=== PATIENT | female | born 1990 | race Caucasian/White ===

== ENCOUNTER 2016-06-29 15:57 | Emergency (ER) | payer OTHER ==
[~2016-06-29] VITALS: Ht 160 cm; Wt 59.0 kg
[~2016-06-29 15:57] MED LIST: ALBUTEROL0.09 MG/A2 IH; AMOXICILLIN500 M2 PO; AMOXIL500 MG PO; ANAPROX DS550 MG PO; ATIVAN1 MG PO; AUGMENTIN 875 M1 TA1 PO; AUGMENTIN 875875 MG PO; CHERATUSSIN AC120 ML PO; CIPRO500 MG PO; COLACE100 MG PO; CYCLOBENZAPRINE5 M3 PO; DIFLUCAN150 MG PO; DOXYCYCLINE HY100 M3 PO; FLAGYL500 MG PO; FLUCONAZOLE100 MG PO; Flagyl500 M1 PO; IRON325 M1 PO; LEVAQUIN250 MG PO; LEVOFLOXACIN500 MG PO; MOTRIN600 MG PO; MOTRIN800 MG PO; Motrin,Rufen800 MG PO; NASONEX0.05 MG/AC NS; NKHM; PERCOCET 325 MG1 TA2 PO; PERCOCET 325 MG1 TA7 PO; PREDNISONE10 MG PO; PYRIDIUM200 MG PO; TOBRAMYCIN 5 ML5 M1 OPH; ULTRAM50 MG PO; VIBRAMYCIN100 MG PO; ZITHROMAX Z PA250 MG PO; ZITHROMAX250 MG PO; ZOFRAN4 MG; [UNRECOGNIZED DRUG - OTHER] PO
[2016-06-29] MEDS ORDERED: CEPHALEXIN500 M1 PO (17:27)
== END 2016-06-29 17:30 | disposition home or self-care (01) ==
LOC: ED 15:57
DX: L03.116 Cellulitis of left lower limb (principal); F17.200 Nicotine dependence, unspecified, uncomplicated; Z91.040 Latex allergy status; Z88.2 Allergy status to sulfonamides; Z88.5 Allergy status to narcotic agent

== ENCOUNTER 2016-08-04 19:45 | Emergency (ER) | payer OTHER ==
[~2016-08-04] VITALS: Ht 160 cm; Wt 56.7 kg
[~2016-08-04 19:45] MED LIST changes: +CEPHALEXIN500 M1 PO
[2016-08-04 20:23] LABS: BILIRUBIN NEGATIVE (NEGATIVE); BLOOD 3+ (NEGATIVE); CLARITY SL CLOUDY (CLEAR); COLOR YELLOW (YELLOW); GLUCOSE NEGATIVE (NEGATIVE); KETONE TRACE (NEGATIVE); LEUKO ESTERASE 1+ (NEGATIVE); NITRITE NEGATIVE (NEGATIVE); PH 6.5 (5.0-9.0); PROTEIN NEGATIVE (NEGATIVE); SPECIFIC GRAVITY 1.015 (1.005-1.030); UROBILINOGEN 0.2 E.U./dl (0.2-1.0)
[2016-08-04 20:29] LABS: BACTERIA 1+; RBC 16-20 rbc/hpf (0-2); URINE REFLEX COMMENT YES (NO); WBC 31-40 wbc/hpf (0-5)
[2016-08-04] MEDS ORDERED: DIFLUCAN150 MG PO (20:35)
[2016-08-04] MEDS ORDERED: CIPRO500 MG PO (20:35)
== END 2016-08-04 20:49 | disposition home or self-care (01) ==
LOC: ED 19:45
PROVIDERS: Physician Assistant
DX: N30.01 Acute cystitis with hematuria (principal); F17.200 Nicotine dependence, unspecified, uncomplicated; Z91.040 Latex allergy status; Z88.2 Allergy status to sulfonamides; Z88.6 Allergy status to analgesic agent

== ENCOUNTER 2016-11-26 17:54 | Emergency (ER) | payer OTHER ==
[~2016-11-26] VITALS: Wt 59.0 kg
[2016-11-26 18:27] LABS: BILIRUBIN NEGATIVE (NEGATIVE); BLOOD 3+ (NEGATIVE); CLARITY SL CLOUDY (CLEAR); COLOR YELLOW (YELLOW); GLUCOSE NEGATIVE (NEGATIVE); KETONE NEGATIVE (NEGATIVE); LEUKO ESTERASE NEGATIVE (NEGATIVE); NITRITE NEGATIVE (NEGATIVE); PH 6.5 (5.0-9.0); UROBILINOGEN 0.2 E.U./dl (0.2-1.0)
[2016-11-26 18:36] LABS: BACTERIA 4+; MUCOUS TRACE; RBC 16-20 rbc/hpf (0-2); WBC 0-2 wbc/hpf (0-5)
[2016-11-27 22:05] LABS: GONOCOCCUS BY NAA Negative (Negative)
== END 2016-11-26 19:23 | disposition home or self-care (01) ==
LOC: ED 17:54
PROVIDERS: Student in an Organized Health Care Education/Training Program
DX: N89.8 Other specified noninflammatory disorders of vagina (principal); F17.200 Nicotine dependence, unspecified, uncomplicated; Z91.040 Latex allergy status; Z88.2 Allergy status to sulfonamides; Z88.5 Allergy status to narcotic agent

== ENCOUNTER 2017-05-26 16:12 | Emergency (ER) | payer OTHER ==
[~2017-05-26] VITALS: Wt 62.6 kg
[2017-05-26 16:52] LABS: BILIRUBIN NEGATIVE (NEGATIVE); BLOOD 1+ (NEGATIVE); CLARITY SL CLOUDY (CLEAR); COLOR YELLOW (YELLOW); GLUCOSE NEGATIVE (NEGATIVE); KETONE 1+ (NEGATIVE); LEUKO ESTERASE NEGATIVE (NEGATIVE); NITRITE NEGATIVE (NEGATIVE); UROBILINOGEN 0.2 E.U./dl (0.2-1.0)
[2017-05-26 17:01] LABS: BACTERIA 2+; EPITHELIAL CELLS TNTC; MUCOUS TRACE
[2017-05-26] MEDS ORDERED: DICLEGIS DR 101 EACH PO (17:07)
[2017-05-26] MEDS ORDERED: PRENATAL VITAM1 EAC4 PO (17:07)
== END 2017-05-26 17:22 | disposition home or self-care (01) ==
LOC: ED 16:12
PROVIDERS: Nurse Practitioner Family
DX: Z32.01 Encounter for pregnancy test, result positive (principal); R30.0 Dysuria; F17.200 Nicotine dependence, unspecified, uncomplicated; Z91.040 Latex allergy status; Z88.2 Allergy status to sulfonamides; Z88.5 Allergy status to narcotic agent

== ENCOUNTER → 2017-10-29 | Outpatient (CLI) | payer OTHER ==
[~2017-10-29] MED LIST changes: +ANUSOL-HC25 MG R; +DICLEGIS DR 101 EACH PO; +PRENATAL VITAM1 EAC4 PO
== END | disposition home or self-care (01) ==
LOC: US 14:00
DX: O20.0 Threatened abortion (principal)

== ENCOUNTER 2017-12-08 21:46 | Emergency (ER) | payer OTHER ==
[~2017-12-08] VITALS: Ht 160 cm; Wt 52.2 kg
[2017-12-08 22:27] LABS: BASO % 0.3 % (0.0-1.0); EOS # 0.2 10*3/uL (0.0-0.4); EOS % 1.5 % (1.0-4.0); HEMATOCRIT 30.6 % (37.0-47.0); HEMOGLOBIN 10.5 g/dl (12.0-16.0); LYMPH # 3.6 10*3/uL (1.3-4.4); LYMPH % 30.5 % (27.0-41.0); MEAN CELL VOLUME 91.6 fl (81.0-99.0); MEAN CORPUSCULAR HGB 31.4 pg (27.0-31.0); MEAN CORPUSCULAR HGB CONC 34.3 g/dl (33.0-37.0); MEAN PLATELET VOLUME 10.5 fl (9.6-12.3); MONO % 8.2 % (3.0-9.0); NEUT # 6.9 10*3/uL (2.3-7.9); NEUT % 59.2 % (47.0-73.0); PLATELET COUNT AUTOMATED 313 10*3/uL (130-400); RED BLOOD COUNT 3.34 10*6/uL (4.10-5.10); WHITE BLOOD COUNT 11.7 10*3/uL (4.8-10.8)
[2017-12-08 22:33] LABS: BILIRUBIN NEGATIVE (NEGATIVE); BLOOD 2+ (NEGATIVE); CLARITY SL CLOUDY (CLEAR); COLOR YELLOW (YELLOW); GLUCOSE NEGATIVE (NEGATIVE); KETONE NEGATIVE (NEGATIVE); LEUKO ESTERASE TRACE (NEGATIVE); NITRITE NEGATIVE (NEGATIVE); SPECIFIC GRAVITY 1.015 (1.005-1.030); UROBILINOGEN 0.2 E.U./dl (0.2-1.0)
[2017-12-08 22:36] LABS: INTERNATIONAL NORM RATIO 0.9 (2.0-3.5)
[2017-12-08 22:41] LABS: ALBUMIN 3.2 gm/dl (3.1-4.5); ALKALINE PHOSPHATASE 58 U/L (45-117); BUN 12 mg/dl (7-24); CHLORIDE 105 mmol/L (98-107); CREATININE 0.57 mg/dL (0.55-1.02); LIPASE 166 U/L (73-393); POTASSIUM 3.6 mmol/L (3.5-5.1); SGOT/AST 13 IU/L (3-35); SGPT/ALT 21 U/L (12-78); SODIUM 139 mmol/L (136-145)
[2017-12-08 22:51] LABS: URINE AMPHETAMINES < 1000 (1000ng/ml); URINE BARBITURATES < 200 (200ng/ml); URINE BENZODIAZEPINES < 200 (200ng/ml); URINE CANNABINOIDS (THC) < 50 (50ng/ml); URINE COCAINE < 300 (300ng/ml); URINE METHADONE < 300 (300ng/ml); URINE OPIATES < 300 (300ng/ml)
[2017-12-08 22:52] LABS: BACTERIA 3+; EPITHELIAL CELLS TNTC; YEAST TRACE
[2017-12-08 22:53] LABS: URINE PHENCYCLIDINE < 25 (25ng/ml)
== END 2017-12-08 23:40 | disposition home or self-care (01) ==
LOC: ED 21:46
PROVIDERS: Physician Assistant
DX: O26.891 Other specified pregnancy related conditions, first trimester (principal); R11.10 Vomiting, unspecified; O99.331 Smoking (tobacco) complicating pregnancy, first trimester; Z3A.12 12 weeks gestation of pregnancy; Z79.899 Other long term (current) drug therapy; Z91.040 Latex allergy status; Z88.2 Allergy status to sulfonamides; Z88.6 Allergy status to analgesic agent

== ENCOUNTER 2018-02-07 20:38 | Emergency (ER) | payer OTHER ==
[~2018-02-07] VITALS: Ht 160 cm; Wt 57.6 kg
[2018-02-07 21:02] LABS: BILIRUBIN NEGATIVE (NEGATIVE); BLOOD TRACE-INTACT (NEGATIVE); CLARITY CLOUDY (CLEAR); COLOR YELLOW (YELLOW); GLUCOSE NEGATIVE (NEGATIVE); KETONE NEGATIVE (NEGATIVE); LEUKO ESTERASE 1+ (NEGATIVE); NITRITE NEGATIVE (NEGATIVE); PH 6.5 (5.0-9.0); UROBILINOGEN 0.2 E.U./dl (0.2-1.0)
[2018-02-07 21:07] LABS: BACTERIA 2+; EPITHELIAL CELLS TNTC; RBC 0-2 rbc/hpf (0-2)
[2018-02-07 21:11] LABS: BASO % 0.4 % (0.0-1.0); EOS # 0.2 10*3/uL (0.0-0.4); EOS % 1.3 % (1.0-4.0); HEMATOCRIT 28.2 % (37.0-47.0); HEMOGLOBIN 9.4 g/dl (12.0-16.0); LYMPH # 2.6 10*3/uL (1.3-4.4); LYMPH % 23.7 % (27.0-41.0); MEAN CELL VOLUME 95.6 fl (81.0-99.0); MEAN CORPUSCULAR HGB 31.9 pg (27.0-31.0); MEAN CORPUSCULAR HGB CONC 33.3 g/dl (33.0-37.0); MEAN PLATELET VOLUME 10.5 fl (9.6-12.3); MONO # 0.7 10*3/uL (0.1-1.0); NEUT # 7.6 10*3/uL (2.3-7.9); PLATELET COUNT AUTOMATED 291 10*3/uL (130-400); RED BLOOD COUNT 2.95 10*6/uL (4.10-5.10); RED CELL DISTRI WIDTH 13.2 % (0-14.5); WHITE BLOOD COUNT 11.2 10*3/uL (4.8-10.8)
[2018-02-07 21:27] LABS: ALKALINE PHOSPHATASE 73 U/L (45-117); BUN 13 mg/dl (7-24); CHLORIDE 106 mmol/L (98-107); LIPASE 128 U/L (73-393); POTASSIUM 3.3 mmol/L (3.5-5.1); SGOT/AST 12 IU/L (3-35); SGPT/ALT 20 U/L (12-78); SODIUM 139 mmol/L (136-145); TOTAL PROTEIN 6.5 gm/dL (6.4-8.2)
== END 2018-02-07 23:38 | disposition left against medical advice (07) ==
LOC: ED 20:38
PROVIDERS: Nurse Practitioner Family
DX: O26.892 Other specified pregnancy related conditions, second trimester (principal); R10.31 Right lower quadrant pain; O99.332 Smoking (tobacco) complicating pregnancy, second trimester; Z91.040 Latex allergy status; Z88.2 Allergy status to sulfonamides; Z88.6 Allergy status to analgesic agent; Z79.899 Other long term (current) drug therapy; Z3A.21 21 weeks gestation of pregnancy

== ENCOUNTER 2018-03-15 16:42 | Emergency (ER) | payer OTHER ==
[~2018-03-15] VITALS: Ht 160 cm; Wt 58.5 kg
[2018-03-15 17:55] LABS: BILIRUBIN NEGATIVE (NEGATIVE); BLOOD TRACE-INTACT (NEGATIVE); CLARITY SL CLOUDY (CLEAR); COLOR YELLOW (YELLOW); GLUCOSE NEGATIVE (NEGATIVE); KETONE 1+ (NEGATIVE); LEUKO ESTERASE NEGATIVE (NEGATIVE); NITRITE NEGATIVE (NEGATIVE); UROBILINOGEN 0.2 E.U./dl (0.2-1.0)
[2018-03-15 18:09] LABS: BACTERIA 3+; EPITHELIAL CELLS 16-20
== END 2018-03-15 18:17 | disposition short-term general hospital (02) ==
LOC: ED 16:42
PROVIDERS: Emergency Medicine
DX: O9A.212 Injury, poisoning and certain other consequences of external causes complicating pregnancy, second trimester (principal); S39.91XA Unspecified injury of abdomen, initial encounter; O99.332 Smoking (tobacco) complicating pregnancy, second trimester; Z91.040 Latex allergy status; Z88.2 Allergy status to sulfonamides; Z88.6 Allergy status to analgesic agent; Z79.899 Other long term (current) drug therapy; Z3A.26 26 weeks gestation of pregnancy; W50.1XXA Accidental kick by another person, initial encounter; Y93.89 Activity, other specified; Y92.89 Other specified places as the place of occurrence of the external cause; Y99.8 Other external cause status

== ENCOUNTER 2018-04-19 20:58 | Emergency (ER) | payer OTHER ==
[~2018-04-19] VITALS: Ht 160 cm; Wt 59.0 kg
[2018-04-19 21:41] LABS: BILIRUBIN NEGATIVE (NEGATIVE); BLOOD NEGATIVE (NEGATIVE); CLARITY SL CLOUDY (CLEAR); COLOR YELLOW (YELLOW); GLUCOSE NEGATIVE (NEGATIVE); KETONE NEGATIVE (NEGATIVE); LEUKO ESTERASE NEGATIVE (NEGATIVE); NITRITE NEGATIVE (NEGATIVE); UROBILINOGEN 0.2 E.U./dl (0.2-1.0)
[2018-04-19 21:44] LABS: BASO % 0.1 % (0.0-1.0); EOS # 0.1 10*3/uL (0.0-0.4); EOS % 1.3 % (1.0-4.0); HEMOGLOBIN 8.9 g/dl (12.0-16.0); LYMPH # 2.6 10*3/uL (1.3-4.4); LYMPH % 24.9 % (27.0-41.0); MEAN CELL VOLUME 93.4 fl (81.0-99.0); MEAN CORPUSCULAR HGB 30.8 pg (27.0-31.0); MEAN PLATELET VOLUME 10.1 fl (9.6-12.3); MONO % 9.9 % (3.0-9.0); NEUT # 6.5 10*3/uL (2.3-7.9); NEUT % 62.9 % (47.0-73.0); PLATELET COUNT AUTOMATED 332 10*3/uL (130-400); RED BLOOD COUNT 2.89 10*6/uL (4.10-5.10); RED CELL DISTRI WIDTH 13.5 % (0-14.5); WHITE BLOOD COUNT 10.3 10*3/uL (4.8-10.8)
[2018-04-19 21:49] LABS: BACTERIA 2+; RBC 0-2 rbc/hpf (0-2)
[2018-04-19 22:03] LABS: ALBUMIN 2.6 gm/dl (3.1-4.5); ALKALINE PHOSPHATASE 123 U/L (45-117); BUN 7 mg/dl (7-24); CHLORIDE 106 mmol/L (98-107); CREATININE 0.53 mg/dL (0.55-1.02); LIPASE 149 U/L (73-393); POTASSIUM 3.3 mmol/L (3.5-5.1); SGOT/AST 15 IU/L (3-35); SGPT/ALT 16 U/L (12-78); SODIUM 138 mmol/L (136-145); TOTAL PROTEIN 6.2 gm/dL (6.4-8.2)
[2018-04-19] MEDS ORDERED: LEVOFLOXACIN500 MG PO (22:31)
[2018-04-19] MEDS ORDERED: K-TAB20 MEQ PO (23:01)
== END 2018-04-19 23:28 | disposition home or self-care (01) ==
LOC: ED 20:58
PROVIDERS: Physician Assistant
DX: O26.893 Other specified pregnancy related conditions, third trimester (principal); R10.13 Epigastric pain; R10.11 Right upper quadrant pain; Z91.040 Latex allergy status; Z88.6 Allergy status to analgesic agent; Z88.2 Allergy status to sulfonamides; Z3A.31 31 weeks gestation of pregnancy

== ENCOUNTER 2018-05-12 03:19 | Emergency (ER) | payer OTHER ==
[~2018-05-12] VITALS: Ht 160 cm; Wt 63.5 kg
[~2018-05-12 03:19] MED LIST changes: +K-TAB20 MEQ PO
[2018-05-12 03:52] LABS: BILIRUBIN NEGATIVE (NEGATIVE); BLOOD NEGATIVE (NEGATIVE); CLARITY SL CLOUDY (CLEAR); COLOR YELLOW (YELLOW); GLUCOSE NEGATIVE (NEGATIVE); KETONE NEGATIVE (NEGATIVE); LEUKO ESTERASE NEGATIVE (NEGATIVE); NITRITE NEGATIVE (NEGATIVE); PH 8.5 (5.0-9.0); UROBILINOGEN 0.2 E.U./dl (0.2-1.0)
[2018-05-12 04:04] LABS: BASO % 0.2 % (0.0-1.0); EOS # 0.1 10*3/uL (0.0-0.4); EOS % 1.1 % (1.0-4.0); HEMATOCRIT 27.2 % (37.0-47.0); HEMOGLOBIN 8.8 g/dl (12.0-16.0); LYMPH # 1.8 10*3/uL (1.3-4.4); LYMPH % 18.7 % (27.0-41.0); MEAN CELL VOLUME 93.8 fl (81.0-99.0); MEAN CORPUSCULAR HGB 30.3 pg (27.0-31.0); MEAN CORPUSCULAR HGB CONC 32.4 g/dl (33.0-37.0); MEAN PLATELET VOLUME 10.7 fl (9.6-12.3); MONO # 0.8 10*3/uL (0.1-1.0); MONO % 8.3 % (3.0-9.0); NEUT # 6.7 10*3/uL (2.3-7.9); NEUT % 70.9 % (47.0-73.0); PLATELET COUNT AUTOMATED 337 10*3/uL (130-400); RED CELL DISTRI WIDTH 13.9 % (0-14.5); WHITE BLOOD COUNT 9.5 10*3/uL (4.8-10.8)
[2018-05-12 04:13] LABS: BACTERIA 2+; EPITHELIAL CELLS 40-45
[2018-05-12 04:39] LABS: ALBUMIN 2.6 gm/dl (3.1-4.5); ALKALINE PHOSPHATASE 156 U/L (45-117); BUN 11 mg/dl (7-24); CHLORIDE 106 mmol/L (98-107); CREATININE 0.53 mg/dL (0.55-1.02); POTASSIUM 3.5 mmol/L (3.5-5.1); SGOT/AST 12 IU/L (3-35); SGPT/ALT 12 U/L (12-78); SODIUM 137 mmol/L (136-145); TOTAL PROTEIN 6.1 gm/dL (6.4-8.2)
== END 2018-05-12 07:33 | disposition home or self-care (01) ==
LOC: ED 03:19
PROVIDERS: Emergency Medicine
DX: O21.2 Late vomiting of pregnancy (principal); O26.893 Other specified pregnancy related conditions, third trimester; O99.333 Smoking (tobacco) complicating pregnancy, third trimester; R51 Headache; F17.200 Nicotine dependence, unspecified, uncomplicated; Z3A.34 34 weeks gestation of pregnancy; Z91.040 Latex allergy status; Z88.2 Allergy status to sulfonamides; Z88.6 Allergy status to analgesic agent

== ENCOUNTER 2018-05-24 07:18 | Emergency (ER) | payer OTHER ==
[~2018-05-24] VITALS: Ht 160 cm; Wt 63.0 kg
[2018-05-24 07:42] LABS: BASO % 0.2 % (0.0-1.0); EOS # 0.1 10*3/uL (0.0-0.4); EOS % 0.7 % (1.0-4.0); HEMATOCRIT 26.9 % (37.0-47.0); HEMOGLOBIN 8.7 g/dl (12.0-16.0); LYMPH # 2.7 10*3/uL (1.3-4.4); LYMPH % 20.6 % (27.0-41.0); MEAN CELL VOLUME 91.5 fl (81.0-99.0); MEAN CORPUSCULAR HGB 29.6 pg (27.0-31.0); MEAN CORPUSCULAR HGB CONC 32.3 g/dl (33.0-37.0); MEAN PLATELET VOLUME 11.3 fl (9.6-12.3); MONO % 7.4 % (3.0-9.0); NEUT # 9.1 10*3/uL (2.3-7.9); NEUT % 70.4 % (47.0-73.0); PLATELET COUNT AUTOMATED 320 10*3/uL (130-400); RED BLOOD COUNT 2.94 10*6/uL (4.10-5.10); RED CELL DISTRI WIDTH 13.8 % (0-14.5); WHITE BLOOD COUNT 12.9 10*3/uL (4.8-10.8)
[2018-05-24 07:54] LABS: ACT PARTIAL THROMBO TIME 24.2 SECONDS (20.8-31.5); INTERNATIONAL NORM RATIO 0.9 (2.0-3.5)
[2018-05-24 08:06] LABS: ALBUMIN 2.7 gm/dl (3.1-4.5); ALKALINE PHOSPHATASE 186 U/L (45-117); BUN 14 mg/dl (7-24); CHLORIDE 105 mmol/L (98-107); CREATININE 0.52 mg/dL (0.55-1.02); POTASSIUM 3.4 mmol/L (3.5-5.1); SGOT/AST 17 IU/L (3-35); SGPT/ALT 14 U/L (12-78); SODIUM 137 mmol/L (136-145); TOTAL PROTEIN 6.2 gm/dL (6.4-8.2)
[2018-05-24 08:39] LABS: BILIRUBIN NEGATIVE (NEGATIVE); BLOOD NEGATIVE (NEGATIVE); CLARITY CLOUDY (CLEAR); COLOR YELLOW (YELLOW); GLUCOSE NEGATIVE (NEGATIVE); KETONE NEGATIVE (NEGATIVE); LEUKO ESTERASE NEGATIVE (NEGATIVE); NITRITE NEGATIVE (NEGATIVE); SPECIFIC GRAVITY 1.015 (1.005-1.030); UROBILINOGEN 0.2 E.U./dl (0.2-1.0)
[2018-05-24 08:47] LABS: BACTERIA 4+; EPITHELIAL CELLS 25-30
[2018-05-24 08:54] LABS: URINE AMPHETAMINES < 1000 (1000ng/ml); URINE BARBITURATES < 200 (200ng/ml); URINE BENZODIAZEPINES < 200 (200ng/ml); URINE CANNABINOIDS (THC) < 50 (50ng/ml); URINE COCAINE < 300 (300ng/ml); URINE METHADONE < 300 (300ng/ml); URINE OPIATES < 300 (300ng/ml)
[2018-05-24 09:14] LABS: URINE PHENCYCLIDINE < 25 (25ng/ml)
== END 2018-05-24 09:29 | disposition home or self-care (01) ==
LOC: ED 07:18
PROVIDERS: Emergency Medicine
DX: O26.893 Other specified pregnancy related conditions, third trimester (principal); O21.2 Late vomiting of pregnancy; M54.6 Pain in thoracic spine; R51 Headache; R10.11 Right upper quadrant pain; Z91.040 Latex allergy status; Z88.2 Allergy status to sulfonamides; Z88.6 Allergy status to analgesic agent; Z87.891 Personal history of nicotine dependence; Z3A.36 36 weeks gestation of pregnancy

== ENCOUNTER 2018-12-01 14:17 | Emergency (ER) | payer OTHER ==
[~2018-12-01] VITALS: Wt 59.0 kg
[2018-12-01] MEDS ORDERED: CYCLOBENZAPRINE10 MG PO (17:06)
[2018-12-01] MEDS ORDERED: Motrin,Rufen800 MG PO (17:06)
== END 2018-12-01 17:12 | disposition home or self-care (01) ==
LOC: ED 14:17
DX: S16.1XXA Strain of muscle, fascia and tendon at neck level, initial encounter (principal); S39.012A Strain of muscle, fascia and tendon of lower back, initial encounter; Z88.2 Allergy status to sulfonamides; Z88.6 Allergy status to analgesic agent; Z87.891 Personal history of nicotine dependence; Z91.040 Latex allergy status; V43.52XA Car driver injured in collision with other type car in traffic accident, initial encounter; Y93.89 Activity, other specified; Y92.89 Other specified places as the place of occurrence of the external cause; Y99.8 Other external cause status

== ENCOUNTER 2020-06-14 21:05 | Emergency (ER) | payer OTHER ==
[~2020-06-14] VITALS: Ht 160 cm; Wt 68.0 kg
[~2020-06-14 21:05] MED LIST changes: +CYCLOBENZAPRINE10 MG PO
[2020-06-14 22:16] LABS: BASO # 0.1 10*3/uL (0.0-0.1); BASO % 0.4 % (0.0-1.0); EOS # 0.1 10*3/uL (0.0-0.4); EOS % 0.9 % (1.0-4.0); HEMATOCRIT 37.2 % (37.0-47.0); LYMPH # 2.8 10*3/uL (1.3-4.4); LYMPH % 24.8 % (27.0-41.0); MEAN CELL VOLUME 91.2 fl (81.0-99.0); MEAN CORPUSCULAR HGB 30.1 pg (27.0-31.0); MEAN CORPUSCULAR HGB CONC 33.1 g/dl (33.0-37.0); MEAN PLATELET VOLUME 10.3 fl (9.6-12.3); MONO # 0.8 10*3/uL (0.1-1.0); MONO % 6.8 % (3.0-9.0); NEUT # 7.5 10*3/uL (2.3-7.9); NEUT % 66.7 % (47.0-73.0); PLATELET COUNT AUTOMATED 366 10*3/uL (130-400); RED BLOOD COUNT 4.08 10*6/uL (4.10-5.10); RED CELL DISTRI WIDTH 13.4 % (0-14.5); WHITE BLOOD COUNT 11.2 10*3/uL (4.8-10.8)
[2020-06-14 22:35] LABS: ALBUMIN 4.1 gm/dl (3.1-4.5); ALKALINE PHOSPHATASE 112 U/L (45-117); BUN 11 mg/dl (7-24); CHLORIDE 106 mmol/L (98-107); CREATININE 0.69 mg/dL (0.55-1.02); POTASSIUM 3.3 mmol/L (3.5-5.1); SGOT/AST 16 IU/L (3-35); SGPT/ALT 31 U/L (12-78); SODIUM 140 mmol/L (136-145); TOTAL PROTEIN 7.6 gm/dL (6.4-8.2)
== END 2020-06-15 00:30 | disposition home or self-care (01) ==
LOC: ED 21:05
PROVIDERS: Physician Assistant
DX: S30.1XXA Contusion of abdominal wall, initial encounter (principal); F17.200 Nicotine dependence, unspecified, uncomplicated; Z91.040 Latex allergy status; Z88.2 Allergy status to sulfonamides; Z88.8 Allergy status to other drugs, medicaments and biological substances; Z79.899 Other long term (current) drug therapy; X58.XXXA Exposure to other specified factors, initial encounter; Y93.89 Activity, other specified; Y92.89 Other specified places as the place of occurrence of the external cause; Y99.8 Other external cause status

== ENCOUNTER 2020-11-10 12:21 | Emergency (ER) | payer OTHER ==
[~2020-11-10] VITALS: Ht 160 cm; Wt 68.0 kg
[2020-11-10] MEDS ORDERED: PREDNISONE20 M1 PO (16:25)
[2020-11-10] MEDS ORDERED: PROVENTIL HFA6.7 GM INH (16:25)
== END 2020-11-10 16:36 | disposition home or self-care (01) ==
LOC: ED 12:21
DX: U07.1 COVID-19 (principal); Z91.040 Latex allergy status; Z88.2 Allergy status to sulfonamides; Z88.6 Allergy status to analgesic agent

== ENCOUNTER 2021-07-24 20:39 | Emergency (ER) | payer OTHER ==
[~2021-07-24] VITALS: Ht 160 cm; Wt 70.3 kg
[~2021-07-24 20:39] MED LIST changes: +PREDNISONE20 M1 PO; +PROVENTIL HFA6.7 GM INH
== END 2021-07-24 21:46 | disposition home or self-care (01) ==
LOC: ED 20:39
DX: S60.811A Abrasion of right wrist, initial encounter (principal); Z91.040 Latex allergy status; Z88.2 Allergy status to sulfonamides; Z88.8 Allergy status to other drugs, medicaments and biological substances; W55.52XA Struck by raccoon, initial encounter; Y93.89 Activity, other specified; Y92.89 Other specified places as the place of occurrence of the external cause; Y99.8 Other external cause status

== ENCOUNTER 2021-07-27 13:32 | Emergency (ER) | payer OTHER ==
[~2021-07-27] VITALS: Ht 160 cm
== END 2021-07-27 14:05 | disposition home or self-care (01) ==
LOC: ED 13:32
DX: Z23 Encounter for immunization (principal); Z91.040 Latex allergy status; Z88.8 Allergy status to other drugs, medicaments and biological substances; Z87.891 Personal history of nicotine dependence

== ENCOUNTER 2021-07-31 18:58 | Emergency (ER) | payer OTHER | END 2021-07-31 21:40 | disposition home or self-care (01) | LOC: ED 18:58 | DX: Z23 Encounter for immunization (principal) ==

== ENCOUNTER 2021-12-27 10:42 | Emergency (ER) | payer OTHER ==
[~2021-12-27] VITALS: Wt 68.0 kg
== END 2021-12-27 11:45 | disposition home or self-care (01) ==
LOC: ED 10:42
DX: Z20.828 Contact with and (suspected) exposure to other viral communicable diseases (principal); F17.200 Nicotine dependence, unspecified, uncomplicated; Z91.040 Latex allergy status; Z88.2 Allergy status to sulfonamides; Z88.6 Allergy status to analgesic agent; Z79.899 Other long term (current) drug therapy

== ENCOUNTER 2022-03-20 20:00 | Emergency (ER) | payer OTHER ==
[~2022-03-20] VITALS: Ht 160 cm; Wt 70.3 kg
[2022-03-20] MEDS ORDERED: NAPROSYN500 MG PO (22:25)
== END 2022-03-20 22:34 | disposition home or self-care (01) ==
LOC: ED 20:00
DX: M70.21 Olecranon bursitis, right elbow (principal); Z88.2 Allergy status to sulfonamides; Z88.5 Allergy status to narcotic agent; Z87.891 Personal history of nicotine dependence; Y93.89 Activity, other specified; Z91.040 Latex allergy status

== ENCOUNTER 2022-04-28 02:15 | Emergency (ER) | payer OTHER ==
[~2022-04-28] VITALS: Ht 160 cm; Wt 70.3 kg
[~2022-04-28 02:15] MED LIST changes: +NAPROSYN500 MG PO
[2022-04-28 02:57] LABS: BASO % 0.4 % (0.0-1.0); EOS # 0.3 10*3/uL (0.0-0.4); EOS % 2.5 % (1.0-4.0); HEMATOCRIT 35.5 % (37.0-47.0); LYMPH # 3.5 10*3/uL (1.3-4.4); LYMPH % 30.7 % (27.0-41.0); MEAN CORPUSCULAR HGB 31.3 pg (27.0-31.0); MEAN CORPUSCULAR HGB CONC 34.4 g/dl (33.0-37.0); MONO # 0.9 10*3/uL (0.1-1.0); MONO % 8.1 % (3.0-9.0); NEUT # 6.6 10*3/uL (2.3-7.9); PLATELET COUNT AUTOMATED 325 10*3/uL (130-400); RED CELL DISTRI WIDTH 13.2 % (0-14.5); WHITE BLOOD COUNT 11.4 10*3/uL (4.8-10.8)
[2022-04-28 03:11] LABS: ALKALINE PHOSPHATASE 84 U/L (46-116); BUN 14 mg/dl (9-23); CHLORIDE 104 mmol/L (98-107); LIPASE 32 U/L (12-53); POTASSIUM 3.3 mmol/L (3.4-5.1); SGPT/ALT 16 U/L (10-49); TOTAL PROTEIN 7.1 gm/dL (6.0-8.0)
[2022-04-28] MEDS ORDERED: OMEPRAZOLE40 MG PO (03:26)
== END 2022-04-28 03:37 | disposition home or self-care (01) ==
LOC: ED 02:15
PROVIDERS: Internal Medicine
DX: R10.11 Right upper quadrant pain (principal); E87.6 Hypokalemia; Z91.040 Latex allergy status; Z88.2 Allergy status to sulfonamides; Z88.8 Allergy status to other drugs, medicaments and biological substances; Z87.891 Personal history of nicotine dependence

== ENCOUNTER 2022-07-02 12:07 | Emergency (ER) | payer OTHER ==
[~2022-07-02] VITALS: Ht 160 cm; Wt 65.8 kg
[~2022-07-02 12:07] MED LIST changes: +OMEPRAZOLE40 MG PO
[2022-07-02 14:30] LABS: BASO % 0.4 % (0.0-1.0); EOS # 0.1 10*3/uL (0.0-0.4); EOS % 0.9 % (1.0-4.0); LYMPH % 26.1 % (27.0-41.0); MEAN CELL VOLUME 90.4 fl (81.0-99.0); MEAN CORPUSCULAR HGB 30.5 pg (27.0-31.0); MEAN CORPUSCULAR HGB CONC 33.7 g/dl (33.0-37.0); MEAN PLATELET VOLUME 10.1 fl (9.6-12.3); MONO # 0.6 10*3/uL (0.1-1.0); MONO % 7.8 % (3.0-9.0); NEUT % 64.4 % (47.0-73.0); PLATELET COUNT AUTOMATED 365 10*3/uL (130-400); RED BLOOD COUNT 3.87 10*6/uL (4.10-5.10); RED CELL DISTRI WIDTH 13.1 % (0-14.5); WHITE BLOOD COUNT 7.8 10*3/uL (4.8-10.8)
[2022-07-02 14:47] LABS: ALKALINE PHOSPHATASE 76 U/L (46-116); BUN 13 mg/dl (9-23); CHLORIDE 104 mmol/L (98-107); POTASSIUM 2.9 mmol/L (3.4-5.1); SGPT/ALT 42 U/L (10-49)
[2022-07-02] MEDS ORDERED: ONDANSETRON4 MG SL (15:50)
[2022-07-02] MEDS ORDERED: POTASSIUM CITR10 MEQ PO (15:50)
[2022-07-02] MEDS ORDERED: ANTI-DIARRHEAL2 MG PO (15:50)
== END 2022-07-02 16:02 | disposition home or self-care (01) ==
LOC: ED 12:07
PROVIDERS: Student in an Organized Health Care Education/Training Program
DX: R11.2 Nausea with vomiting, unspecified (principal); R10.13 Epigastric pain; Z91.040 Latex allergy status; Z88.2 Allergy status to sulfonamides; Z88.5 Allergy status to narcotic agent; F17.200 Nicotine dependence, unspecified, uncomplicated

== ENCOUNTER 2022-07-30 11:45 | Emergency (ER) | payer OTHER ==
[~2022-07-30] VITALS: Wt 68.0 kg
[~2022-07-30 11:45] MED LIST changes: +ANTI-DIARRHEAL2 MG PO; +ONDANSETRON4 MG SL; +POTASSIUM CITR10 MEQ PO
[2022-07-30 12:17] LABS: BASO % 0.3 % (0.0-1.0); EOS # 0.1 10*3/uL (0.0-0.4); EOS % 0.7 % (1.0-4.0); HEMATOCRIT 36.1 % (37.0-47.0); LYMPH # 3.2 10*3/uL (1.3-4.4); LYMPH % 32.1 % (27.0-41.0); MEAN CELL VOLUME 89.4 fl (81.0-99.0); MEAN CORPUSCULAR HGB 30.9 pg (27.0-31.0); MEAN CORPUSCULAR HGB CONC 34.6 g/dl (33.0-37.0); MEAN PLATELET VOLUME 10.3 fl (9.6-12.3); MONO # 0.6 10*3/uL (0.1-1.0); MONO % 6.5 % (3.0-9.0); NEUT # 5.8 10*3/uL (2.3-7.9); NEUT % 59.7 % (47.0-73.0); PLATELET COUNT AUTOMATED 357 10*3/uL (130-400); RED BLOOD COUNT 4.04 10*6/uL (4.10-5.10); RED CELL DISTRI WIDTH 13.1 % (0-14.5); WHITE BLOOD COUNT 9.8 10*3/uL (4.8-10.8)
[2022-07-30 12:28] LABS: ACT PARTIAL THROMBO TIME 23.8 SECONDS (20.0-32.1); INTERNATIONAL NORM RATIO 1.1 (2.0-3.5)
[2022-07-30 12:42] LABS: ALKALINE PHOSPHATASE 76 U/L (46-116); BUN 14 mg/dl (9-23); CHLORIDE 106 mmol/L (98-107); LIPASE 26 U/L (12-53); POTASSIUM 3.4 mmol/L (3.4-5.1); SGPT/ALT 20 U/L (10-49)
[2022-07-30 12:48] LABS: BETA-HCG, QUANT < 3.0 mIU/mL (3-10)
[2022-07-30 13:46] LABS: BILIRUBIN Negative (Negative); BLOOD 3+ (Negative); CLARITY Cloudy (Clear); COLOR Yellow (Yellow); GLUCOSE Negative (Negative); KETONE Trace (Negative); LEUKO ESTERASE 1+ (Negative); NITRITE Negative (Negative); SPECIFIC GRAVITY 1.025 (1.001-1.030)
[2022-07-30 13:47] LABS: PH 8.5 (4.5-8.0)
[2022-07-30 14:00] LABS: BACTERIA 3+; EPITHELIAL CELLS 21-30; MUCOUS 2+; RBC TNTC rbc/hpf (0-2)
[2022-07-30] MEDS ORDERED: PERCOCET 5-3251 EACH PO (14:10)
[2022-07-30] MEDS ORDERED: FLOMAX0.4 MG PO (14:10)
[2022-07-30] MEDS ORDERED: Motrin,Rufen800 MG PO (14:10)
[2022-07-30] MEDS ORDERED: ONDANSETRON4 MG SL (14:10)
== END 2022-07-30 14:24 | disposition home or self-care (01) ==
LOC: ED 11:45
PROVIDERS: Emergency Medicine
DX: N20.1 Calculus of ureter (principal); R11.0 Nausea; Z91.040 Latex allergy status; Z88.2 Allergy status to sulfonamides; Z88.5 Allergy status to narcotic agent; Z88.8 Allergy status to other drugs, medicaments and biological substances; F17.200 Nicotine dependence, unspecified, uncomplicated

== ENCOUNTER → 2022-08-06 | Outpatient (CLI) | payer OTHER ==
[~2022-08-06] MED LIST changes: +FLOMAX0.4 MG PO; +PERCOCET 5-3251 EACH PO
== END | disposition home or self-care (01) ==
LOC: RAD 11:33
PROVIDERS: ATTEND Urology
DX: N20.0 Calculus of kidney (principal)

== ENCOUNTER 2022-10-06 22:21 | Emergency (ER) | payer OTHER ==
[2022-10-06] MEDS ORDERED: PERMETHRIN60 GM T (22:45)
== END 2022-10-06 23:22 | disposition home or self-care (01) ==
LOC: ED 22:21
DX: B86 Scabies (principal); F17.200 Nicotine dependence, unspecified, uncomplicated; Z91.040 Latex allergy status; Z88.2 Allergy status to sulfonamides; Z88.6 Allergy status to analgesic agent; Z79.899 Other long term (current) drug therapy

== ENCOUNTER 2023-01-01 22:15 | Emergency (ER) | payer OTHER ==
[~2023-01-01] VITALS: Ht 160 cm; Wt 68.0 kg
[~2023-01-01 22:15] MED LIST changes: +PERMETHRIN60 GM T
== END 2023-01-01 23:00 | disposition home or self-care (01) ==
LOC: ED 22:15
DX: S61.512A Laceration without foreign body of left wrist, initial encounter (principal); F41.9 Anxiety disorder, unspecified; E87.6 Hypokalemia; Z91.040 Latex allergy status; Z88.2 Allergy status to sulfonamides; Z88.5 Allergy status to narcotic agent; Z88.8 Allergy status to other drugs, medicaments and biological substances; Z87.442 Personal history of urinary calculi; F17.200 Nicotine dependence, unspecified, uncomplicated; Z98.51 Tubal ligation status; W26.0XXA Contact with knife, initial encounter; Y93.G1 Activity, food preparation and clean up; Y92.009 Unspecified place in unspecified non-institutional (private) residence as the place of occurrence of the external cause; Y99.8 Other external cause status

== ENCOUNTER 2023-03-05 07:09 | Emergency (ER) | payer OTHER ==
[~2023-03-05] VITALS: Ht 160 cm; Wt 68.0 kg
[2023-03-05 09:34] LABS: BASO # 0.1 10*3/uL (0.0-0.1); BASO % 0.5 % (0.0-1.0); EOS # 0.1 10*3/uL (0.0-0.4); EOS % 0.9 % (1.0-4.0); HEMATOCRIT 37.2 % (37.0-47.0); LYMPH # 3.1 10*3/uL (1.3-4.4); LYMPH % 29.5 % (27.0-41.0); MEAN CELL VOLUME 90.5 fl (81.0-99.0); MEAN CORPUSCULAR HGB 30.2 pg (27.0-31.0); MEAN CORPUSCULAR HGB CONC 33.3 g/dl (33.0-37.0); MEAN PLATELET VOLUME 9.9 fl (9.6-12.3); MONO # 0.7 10*3/uL (0.1-1.0); NEUT # 6.4 10*3/uL (2.3-7.9); NEUT % 61.5 % (47.0-73.0); PLATELET COUNT AUTOMATED 349 10*3/uL (130-400); RED BLOOD COUNT 4.11 10*6/uL (4.10-5.10); RED CELL DISTRI WIDTH 12.9 % (0-14.5); WHITE BLOOD COUNT 10.4 10*3/uL (4.8-10.8)
[2023-03-05 09:46] LABS: ACT PARTIAL THROMBO TIME 28.5 SECONDS (20.0-32.1)
[2023-03-05 09:56] LABS: ALKALINE PHOSPHATASE 95 U/L (46-116); BUN 17 mg/dl (9-23); CHLORIDE 105 mmol/L (98-107); LIPASE 27 U/L (12-53); POTASSIUM 3.6 mmol/L (3.4-5.1); SGPT/ALT 34 U/L (5-49)
[2023-03-05 09:57] LABS: BETA-HCG, QUANT < 3.0 mIU/mL (3-10)
== END 2023-03-05 10:52 | disposition home or self-care (01) ==
LOC: ED 07:09
PROVIDERS: Emergency Medicine
DX: K80.50 Calculus of bile duct without cholangitis or cholecystitis without obstruction (principal); M25.511 Pain in right shoulder; F17.200 Nicotine dependence, unspecified, uncomplicated; Z91.040 Latex allergy status; Z88.2 Allergy status to sulfonamides; Z88.6 Allergy status to analgesic agent

== ENCOUNTER 2023-06-09 04:50 | Emergency (ER) | payer OTHER ==
[~2023-06-09] VITALS: Ht 160 cm; Wt 65.8 kg
[2023-06-09] MEDS ORDERED: HYDROCORTISONE ACETATE R ONE (05:25)
[2023-06-09] MEDS ORDERED: HYDROCORTISONE ACETATE 25 MG SUPP R ONE (05:25)
[2023-06-09] MEDS ORDERED: [UNRECOGNIZED DRUG - OTHER] R ONE (05:25)
[2023-06-09] MEDS ORDERED: Ketorolac Tromethamine 60 MG/2 ML VIAL IM ONE (05:30)
== END 2023-06-09 06:13 | disposition home or self-care (01) ==
LOC: ED 04:50
DX: K64.4 Residual hemorrhoidal skin tags (principal); Z91.040 Latex allergy status; Z88.2 Allergy status to sulfonamides; Z88.8 Allergy status to other drugs, medicaments and biological substances; F17.200 Nicotine dependence, unspecified, uncomplicated; Z87.442 Personal history of urinary calculi; Z98.51 Tubal ligation status

== ENCOUNTER 2023-10-16 03:04 | Emergency (ER) | payer OTHER ==
[~2023-10-16] VITALS: Ht 160 cm; Wt 70.3 kg
[2023-10-16] MEDS ORDERED: Albuterol Sulfate 2.5 MG/3 ML VIAL NEB ONE (03:30)
[2023-10-16] MEDS ORDERED: BENZONATATE100 M1 PO (05:03)
[2023-10-16] MEDS ORDERED: BENZONATATE 100 MG CAP PO ONE (05:05)
[2023-10-16] MEDS ORDERED: ALBUTEROL 8 GM INHALER INH ONE (05:05)
[2023-10-16] MEDS ORDERED: ZITHROMAX250 MG PO (05:06)
[2023-10-16] MEDS ORDERED: AZITHROMYCIN 250 MG TAB PO ONE (05:10)
== END 2023-10-16 05:19 | disposition home or self-care (01) ==
LOC: ED 03:04
DX: J06.9 Acute upper respiratory infection, unspecified (principal); Z20.822 Contact with and (suspected) exposure to COVID-19; R05.9 Cough, unspecified; F41.9 Anxiety disorder, unspecified; E87.6 Hypokalemia; F17.200 Nicotine dependence, unspecified, uncomplicated; Z91.040 Latex allergy status; Z88.2 Allergy status to sulfonamides; Z88.8 Allergy status to other drugs, medicaments and biological substances; Z98.51 Tubal ligation status

== ENCOUNTER 2024-02-16 21:37 | Emergency (ER) | payer BC, OTHER ==
[~2024-02-16] VITALS: Ht 160 cm; Wt 65.8 kg
[~2024-02-16 21:37] MED LIST changes: +BENZONATATE100 M1 PO
[2024-02-16] MEDS ORDERED: GUAIFENESIN/DEXTROMETHORPHAN 10 ML UDC PO ONE (21:55)
[2024-02-16] MEDS ORDERED: Ketorolac Tromethamine 30 MG/ML VIAL IM ONE (21:55)
[2024-02-16] MEDS ORDERED: Amoxicillin/Clavulanate Pota 875 MG TAB PO ONE (21:55)
[2024-02-16] MEDS ORDERED: AMOX-CLAV 875-1 EACH PO (21:57)
[2024-02-16] MEDS ORDERED: FLUONAZOLE150 M1 PO (21:57)
[2024-02-16] MEDS ORDERED: BROMFED DM COU118 M2 PO (21:57)
== END 2024-02-16 22:23 | disposition home or self-care (01) ==
LOC: ED 21:37
DX: J01.90 Acute sinusitis, unspecified (principal); F17.200 Nicotine dependence, unspecified, uncomplicated; Z91.040 Latex allergy status; Z88.2 Allergy status to sulfonamides; Z88.8 Allergy status to other drugs, medicaments and biological substances; Z98.51 Tubal ligation status

== ENCOUNTER 2024-07-07 11:46 | Emergency (ER) | payer OTHER ==
[~2024-07-07] VITALS: Ht 160 cm; Wt 70.3 kg
[~2024-07-07 11:46] MED LIST changes: +AMOX-CLAV 875-1 EACH PO; +BROMFED DM COU118 M2 PO; +FLUONAZOLE150 M1 PO
[2024-07-07] MEDS ORDERED: AZITHROMYCIN 250 MG TAB PO ONE (12:25)
[2024-07-07] MEDS ORDERED: cefTRIAXone Sodium 500 MG VIAL IM ONE (12:25)
[2024-07-07 12:28] LABS: BILIRUBIN Negative (Negative); BLOOD 1+ (Negative); CLARITY Clear (Clear); COLOR Yellow (Yellow); GLUCOSE Negative (Negative); KETONE Trace (Negative); LEUKO ESTERASE Trace (Negative); NITRITE Negative (Negative); UROBILINOGEN 0.2 E.U./dl (0.0-1.0)
[2024-07-07] MEDS ORDERED: FLAGYL 375375 MG PO (12:30)
[2024-07-07 12:41] LABS: PH 8.5 (4.5-8.0)
[2024-07-07 12:44] LABS: BACTERIA 3+; EPITHELIAL CELLS 16-20; MUCOUS 1+; RBC 21-30 rbc/hpf (0-2)
[2024-07-07] MEDS ORDERED: Water, Sterile 10 ML VIAL ONE (12:46)
== END 2024-07-07 12:41 | disposition home or self-care (01) ==
LOC: ED 11:46
PROVIDERS: Emergency Medicine
DX: Z20.2 Contact with and (suspected) exposure to infections with a predominantly sexual mode of transmission (principal); F17.200 Nicotine dependence, unspecified, uncomplicated; Z79.899 Other long term (current) drug therapy; Z88.2 Allergy status to sulfonamides; Z88.5 Allergy status to narcotic agent; Z91.040 Latex allergy status

== ENCOUNTER 2024-11-14 01:16 | Inpatient (IN) | payer OTHER ==
[~2024-11-14] VITALS: Ht 165.1 cm; Wt 69.1 kg
[~2024-11-14 01:16] MED LIST changes: +FLAGYL 375375 MG PO
[2024-11-14 01:31] VITALS: BP 122/70
[2024-11-14] MEDS ORDERED: Promethazine Hydrochloride 25 MG/ML VIAL IV ONE (01:40)
[2024-11-14] MEDS ORDERED: SODIUM CHLORIDE 0.9% 1,000 ML IV ONE ×2 (01:40→03:15)
[2024-11-14] MEDS ORDERED: SODIUM CHLORIDE 0.9% 1,000 ML IV SCH (01:50)
[2024-11-14 02:00] LABS: BASO # 0.0 10*3/uL (0.0-0.1); BASO % 0.3 % (0.0-1.0); EOS # 0.3 10*3/uL (0.0-0.4); EOS % 3.0 % (1.0-4.0); MEAN CELL VOLUME 90.4 fl (81.0-99.0); MEAN CORPUSCULAR HGB 30.5 pg (27.0-31.0); MEAN PLATELET VOLUME 9.9 fl (9.6-12.3); MONO # 1.2 10*3/uL (0.1-1.0); MONO % 12.1 % (3.0-9.0); NEUT # 6.1 10*3/uL (2.3-7.9); NEUT % 62.4 % (47.0-73.0); NUCLEATED RED BLOOD CELL 0.0 % (0.0-0.0); NUCLEATED RED BLOOD CELL 0.0 10*3/uL (0.0-0.0); PLATELET COUNT AUTOMATED 301 10*3/uL (130-400); RED CELL DISTRI WIDTH 13.4 % (0-14.5)
[2024-11-14] MEDS ORDERED: NAPROXEN500 MG PO (02:09)
[2024-11-14] MEDS ORDERED: AMOX-CLAV 875-1 EACH PO (02:09)
[2024-11-14] MEDS ORDERED: Ondansetron4 MG PO (02:10)
[2024-11-14 02:25] LABS: BUN 17 mg/dl (9-23)
[2024-11-14 02:31] LABS: BETA-HCG, QUANT < 3.0 mIU/mL (3-10)
[2024-11-14] MEDS ORDERED: BISACODYL 5 MG TAB PO PRN (03:10)
[2024-11-14] MEDS ORDERED: ACETAMINOPHEN 650 MG SUPP R PRN (03:10)
[2024-11-14] MEDS ORDERED: BISACODYL 10 MG SUPP R PRN (03:10)
[2024-11-14] MEDS ORDERED: ACETAMINOPHEN 325 MG TAB PO PRN (03:10)
[2024-11-14] MEDS ORDERED: Ondansetron Hydrochloride 4 MG/2 ML VIAL IV PRN (03:10)
[2024-11-14 08:08] LABS: FREE T4 1.02 ng/dl (0.89-1.76); LDL CHOLESTEROL 63.0 mg/dL (9-159)
[2024-11-14 08:24] LABS: VITAMIN D, 25-HYDROXY 41.0 ng/mL (30-100)
[2024-11-14 08:34] VITALS: BP 91/53
[2024-11-14 09:00] VITALS: BP 95/57
[2024-11-14 12:00] VITALS: BP 108/62
[2024-11-14 16:00] VITALS: BP 112/68
[2024-11-14 20:00] VITALS: BP 119/70; BP 120/71
[2024-11-14 21:20] LABS: BILIRUBIN Negative (Negative); BLOOD 2+ (Negative); CLARITY Clear (Clear); COLOR Yellow (Yellow); KETONE Negative (Negative); LEUKO ESTERASE Negative (Negative); NITRITE Negative (Negative); PH 7.0 (4.5-8.0); SPECIFIC GRAVITY 1.010 (1.001-1.030); UROBILINOGEN 0.2 E.U./dl (0.0-1.0)
[2024-11-14] MEDS ORDERED: MAGNESIUM CITRATE 296 ML BOT PO ONE (21:20)
[2024-11-14 21:30] LABS: BACTERIA 2+; RBC 21-30 rbc/hpf (0-2); WBC 0-2 wbc/hpf (0-5)
[2024-11-14] MEDS ORDERED: Polyethylene Glycol 3350 17 GM PACKET PO PRN (22:00)
[2024-11-15] VITALS: BP 116/53
[2024-11-15 06:39] LABS: BUN 10 mg/dl (9-23)
[2024-11-15 06:51] LABS: BASO # 0.0 10*3/uL (0.0-0.1); BASO % 0.5 % (0.0-1.0); EOS # 0.3 10*3/uL (0.0-0.4); EOS % 4.2 % (1.0-4.0); MEAN CORPUSCULAR HGB 30.7 pg (27.0-31.0); MEAN PLATELET VOLUME 10.6 fl (9.6-12.3); MONO # 0.8 10*3/uL (0.1-1.0); MONO % 10.8 % (3.0-9.0); NEUT # 4.0 10*3/uL (2.3-7.9); NEUT % 54.6 % (47.0-73.0); NUCLEATED RED BLOOD CELL 0.0 % (0.0-0.0); NUCLEATED RED BLOOD CELL 0.0 10*3/uL (0.0-0.0); PLATELET COUNT AUTOMATED 306 10*3/uL (130-400); RED CELL DISTRI WIDTH 13.8 % (0-14.5)
[2024-11-15 06:52] LABS: MEAN CELL VOLUME 95.5 fl (81.0-99.0)
[2024-11-15 08:00] VITALS: BP 103/64
[2024-11-15 12:00] VITALS: BP 113/68
[2024-11-15] MEDS ORDERED: FLUCONAZOLE 150 MG TAB PO ONE (15:15)
[2024-11-15 20:00] VITALS: BP 112/52
[2024-11-15] MEDS ORDERED: Dicyclomine Hydrochloride 10 MG CAP PO ONE (22:20)
[2024-11-16] VITALS: BP 110/61
[2024-11-16 06:17] LABS: BASO # 0.1 10*3/uL (0.0-0.1); BASO % 0.6 % (0.0-1.0); EOS # 0.4 10*3/uL (0.0-0.4); EOS % 4.2 % (1.0-4.0); MEAN CELL VOLUME 95.1 fl (81.0-99.0); MEAN CORPUSCULAR HGB 30.3 pg (27.0-31.0); MEAN PLATELET VOLUME 10.5 fl (9.6-12.3); MONO # 0.9 10*3/uL (0.1-1.0); MONO % 9.4 % (3.0-9.0); NEUT # 5.0 10*3/uL (2.3-7.9); NEUT % 54.9 % (47.0-73.0); NUCLEATED RED BLOOD CELL 0.0 % (0.0-0.0); NUCLEATED RED BLOOD CELL 0.0 10*3/uL (0.0-0.0); PLATELET COUNT AUTOMATED 325 10*3/uL (130-400); RED CELL DISTRI WIDTH 13.7 % (0-14.5)
[2024-11-16 06:20] LABS: BUN 10 mg/dl (9-23)
[2024-11-16 08:00] VITALS: BP 104/64
[2024-11-16 12:00] VITALS: BP 103/64
[2024-11-16] MEDS ORDERED: Dicyclomine Hydrochloride 20 MG TAB PO PRN (13:00)
[2024-11-16] MEDS ORDERED: METRONIDAZOLE500 M1 PO (15:26)
[2024-11-16] MEDS ORDERED: DICYCLOMINE HYD20 MG PO (15:26)
[2024-11-16] MEDS ORDERED: CIPRO500 MG PO (15:26)
== END 2024-11-16 15:51 | disposition home or self-care (01) | DRG 244 ==
LOC: ED 01:16 → EDHOLD 01:53 → 4E 01:53
PROVIDERS: Emergency Medicine; Family Medicine; Student in an Organized Health Care Education/Training Program; ADMIT Internal Medicine; ATTEND Internal Medicine
DX: K57.32 Diverticulitis of large intestine without perforation or abscess without bleeding (principal); E87.8 Other disorders of electrolyte and fluid balance, not elsewhere classified; F41.9 Anxiety disorder, unspecified; F41.0 Panic disorder [episodic paroxysmal anxiety]; D64.9 Anemia, unspecified; R73.9 Hyperglycemia, unspecified; F17.210 Nicotine dependence, cigarettes, uncomplicated; Z88.2 Allergy status to sulfonamides; Z88.8 Allergy status to other drugs, medicaments and biological substances; Z78.9 Other specified health status; Z91.040 Latex allergy status; Z79.899 Other long term (current) drug therapy; Z79.01 Long term (current) use of anticoagulants; Z79.2 Long term (current) use of antibiotics; Z71.6 Tobacco abuse counseling; Z83.79 Family history of other diseases of the digestive system

== ENCOUNTER 2024-12-04 00:39 | Emergency (ER) | payer OTHER ==
[~2024-12-04] VITALS: Ht 160 cm; Wt 68.0 kg
[~2024-12-04 00:39] MED LIST changes: +DICYCLOMINE HYD20 MG PO; +METRONIDAZOLE500 M1 PO; +NAPROXEN500 MG PO; +Ondansetron4 MG PO
[2024-12-04] MEDS ORDERED: SODIUM CHLORIDE 0.9% 1,000 ML IV ONE (01:35)
[2024-12-04] MEDS ORDERED: Ondansetron Hydrochloride 4 MG/2 ML VIAL IV ONE (01:40)
== END 2024-12-04 03:53 | disposition left against medical advice (07) ==
LOC: ED 00:39
DX: R10.30 Lower abdominal pain, unspecified (principal); R19.7 Diarrhea, unspecified; F41.9 Anxiety disorder, unspecified; F17.200 Nicotine dependence, unspecified, uncomplicated; Z87.442 Personal history of urinary calculi; Z91.040 Latex allergy status; Z88.2 Allergy status to sulfonamides; Z88.6 Allergy status to analgesic agent; Z79.899 Other long term (current) drug therapy

== ENCOUNTER 2024-12-23 19:33 | Emergency (ER) | payer OTHER ==
[~2024-12-23] VITALS: Ht 160 cm; Wt 68.0 kg
[2024-12-23 20:32] LABS: BASO # 0.0 10*3/uL (0.0-0.1); BASO % 0.3 % (0.0-1.0); EOS # 0.2 10*3/uL (0.0-0.4); EOS % 2.1 % (1.0-4.0); MEAN CELL VOLUME 91.7 fl (81.0-99.0); MEAN CORPUSCULAR HGB 30.6 pg (27.0-31.0); MEAN PLATELET VOLUME 9.9 fl (9.6-12.3); MONO # 0.7 10*3/uL (0.1-1.0); MONO % 6.8 % (3.0-9.0); NEUT # 6.2 10*3/uL (2.3-7.9); NEUT % 57.4 % (47.0-73.0); NUCLEATED RED BLOOD CELL 0.0 % (0.0-0.0); NUCLEATED RED BLOOD CELL 0.0 10*3/uL (0.0-0.0); PLATELET COUNT AUTOMATED 376 10*3/uL (130-400); RED CELL DISTRI WIDTH 13.4 % (0-14.5)
[2024-12-23 20:57] LABS: BUN 19 mg/dl (9-23); SGPT/ALT 23 U/L (5-49)
== END 2024-12-23 21:32 | disposition home or self-care (01) ==
LOC: ED 19:33
PROVIDERS: Internal Medicine
DX: R14.1 Gas pain (principal); K57.30 Diverticulosis of large intestine without perforation or abscess without bleeding; K59.00 Constipation, unspecified; D64.9 Anemia, unspecified; F17.200 Nicotine dependence, unspecified, uncomplicated; Z91.040 Latex allergy status; Z88.2 Allergy status to sulfonamides; Z88.6 Allergy status to analgesic agent; Z88.8 Allergy status to other drugs, medicaments and biological substances